=== PATIENT | female | born 1940 | race Two or more races ===

== ENCOUNTER 2023-06-16 23:33 | Inpatient (IN) | payer OTHER ==
[~2023-06-16] VITALS: Ht 162.6 cm; Wt 57.9 kg
[2023-06-17] VITALS (11 sets, daily range): BP systolic 124–145; BP diastolic 51–73; PULSE 53–64; RESP 16–22; TEMP 98–98.9; O2SAT 2–98
[2023-06-17] MEDS ORDERED: MORPHINE SULFATE INJ 2 MG/ml SYRG IV PRN (00:30)
[2023-06-17] MEDS ORDERED: ONDANSETRON HCL 4 MG/2 ML VIAL IV PRN (00:30)
[2023-06-17] MEDS ORDERED: HYDROcodone-ACET 5/325MG TAB PO PRN (00:30)
[2023-06-17] MEDS ORDERED: NITROGLYCERIN 0.4 MG SL TAB SL PRN (00:30)
[2023-06-17] MEDS ORDERED: ACETAMINOPHEN 325 MG TAB PO PRN (00:30)
[2023-06-17] MEDS ORDERED: hydrALAZINE HCL 10 MG TAB PO PRN (00:30)
[2023-06-17] MEDS ORDERED: LEVO50TA7 PO (02:49)
[2023-06-17] MEDS ORDERED: LISI10TA34 PO (02:49)
[2023-06-17] MEDS ORDERED: IPRATROPIUM BROM 0.5 MG/2.5ML INH SOL NEB PRN (05:15)
[2023-06-17 07:52] LABS: Anion Gap 8 (5-15); Calcium 9.3 mg/dL (8.5-10.1); Carbon Dioxide 27 mmol/L (20-30); Chloride 102 mmol/L (98-107); Potassium 4.2 mmol/L (3.5-5.1); Sodium 137 mmol/L (136-145)
[2023-06-17 07:55] LABS: Basophils # (auto) 0 10 ^3/uL (0-0.2); Basophils % (auto) 0.6 % (0.0-2.0); Eosinophils # (auto) 0.1 10 ^3/uL (0-0.8); Eosinophils % (auto) 2.4 % (0.0-7.0); Hemoglobin 13.5 g/dL (12.2-16.2); Lymphocytes # (auto) 1.2 10 ^3/uL (0.4-5.4); Lymphocytes % (auto) 28.5 % (10.0-50.0); Mean Corpuscular Hgb Conc. 33.7 g/dL (32.0-36.0); Mean Corpuscular Volume 92.2 fL (80.0-100.0); Monocytes # (auto) 0.6 10 ^3/uL (0-1.3); Monocytes % (auto) 13.7 % (0.0-12.0); Neutrophils # (auto) 2.4 10 ^3/uL (1.6-8.6); Neutrophils % (auto) 54.8 % (37.0-80.0); Nucleated Red Blood Cells % 0.6 %; Red Blood Cells 4.34 10^6/uL (4.0-5.20); Red Cell Distribution Width 14.7 % (11.8-14.3); White Blood Cell 4.3 10^3/uL (4.4-10.8)
[2023-06-17 07:58] LABS: BUN/Creatinine Ratio 13.5 (10.0-20.0); Blood Urea Nitrogen 12 mg/dL (9-23); Glucose 83 mg/dL (74-106); Triglycerides 90 mg/dL (< 150)
[2023-06-17 07:59] LABS: LDL Cholesterol 109 mg/dL (< 100)
[2023-06-17 08:00] LABS: Cholesterol 175 mg/dL (< 200); HDL Cholesterol 50 mg/dL (40-59)
[2023-06-17] MEDS: ASPirin 81 mg TAB PO SCH (09:57)
[2023-06-17] MEDS: LEVOTHYROXINE SODIUM 50 MCG TAB PO SCH (09:57)
[2023-06-17] MEDS: LISINOPRIL 10 MG TAB PO SCH (09:58)
[2023-06-17 14:36] LABS: Free T3 2.02 pg/mL (2.3-4.2)
[2023-06-17 14:37] LABS: Free T4 (Free Thyroxine) 0.92 ng/dL (0.89-1.76)
[2023-06-17 18:26] LABS: Rapid Influenza A Negative (Negative); Rapid Influenza B Negative (Negative)
[2023-06-17] MEDS ORDERED: ATORVASTATIN 20 MG TAB PO SCH (22:00)
[2023-06-18] VITALS (7 sets, daily range): BP systolic 119–157; BP diastolic 60–65; PULSE 48–62; RESP 16–18; TEMP 36.7; O2SAT 2–97
[2023-06-18] MEDS: LEVOTHYROXINE SODIUM 50 MCG TAB PO SCH (10:05)
[2023-06-18] MEDS: ASPirin 81 mg TAB PO SCH (10:05)
[2023-06-18] MEDS: LISINOPRIL 10 MG TAB PO SCH (10:05)
[2023-06-18] MEDS ORDERED: LEVO75TA6 PO (14:25)
== END 2023-06-18 18:28 | disposition home or self-care (01) | DRG 311 ==
LOC: TELE 06-17 00:32 → TELE-WESTW 06-17 01:50
PROVIDERS: ADMIT Nurse Practitioner Family; ATTEND Nurse Practitioner Family
DX: I24.9 Acute ischemic heart disease, unspecified (principal); R06.02 Shortness of breath; R07.9 Chest pain, unspecified; R00.1 Bradycardia, unspecified; E03.9 Hypothyroidism, unspecified; E78.5 Hyperlipidemia, unspecified; I10 Essential (primary) hypertension; Z20.822 Contact with and (suspected) exposure to COVID-19
CPT/HCPCS: 36415; 80048; 80061; 83880; 84439; 84443; 84481; 84484; 85025; 87804; 93306; 97163; G0378